=== PATIENT | male | born 1995 | race Asian ===

== ENCOUNTER 2018-07-17 17:28 | Emergency (ER) | payer OTHER ==
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
[2018-07-17 19:16] VITALS: BP 140/80
== END 2018-07-17 19:15 | disposition home or self-care (01) ==
LOC: ED 17:28
DX: M25.561 Pain in right knee (principal); F17.200 Nicotine dependence, unspecified, uncomplicated
CPT/HCPCS: 99282